=== PATIENT | male | born 1960 | race Caucasian/White ===

== ENCOUNTER 2016-08-24 12:01 | Emergency (ER) | payer BC, OTHER ==
[~2016-08-24] VITALS: Ht 167.6 cm; Wt 57.8 kg
[~2016-08-24 12:01] MED LIST: ASPI-558 PO; FLUT1DIS31 IH; LEVO50TA69 PO
[2016-08-24 12:05] VITALS: Ht 167.6 cm; Wt 57.8 kg
--- OUTSIDE RECORDS SUMMARY | 2016-08-24 12:06 | XMS REPORT | Continuity of Care Document ---
Author Author [facility] Organization [facility] Address Unknown Phone Unavailable Allergies Active Description Code Type Severity Reaction Onset Reported/Identified Relationship to Patient Clinical Status Yes penicillin NKMA N/A N/A 03/29/2014 Medications Problems Date Dx Coded Attending Type Code Diagnosis Diagnosed By 07/06/2015 DONAVON SALINAS, JONI Flynn M70.21 Olecranon bursitis, right elbow 07/06/2015 DONAVON SALINAS, JONI Lopez M79.9 Soft tissue disorder, unspecified Procedures Code [place] [address] EMERGENCY DEPT VISIT JONI RAPHAEL MD 07/06/2015 Results Encounters ACCT No. Visit Date/Time Discharge Status Pt. Type Provider Facility Loc./Unit Complaint [id number] 02/28/2016 13:03:00 2015 23:59:00 DIS Outpatient Juvenal Pierce [facility] FM results after mri [id number] 02/12/2016 14:04:00 2015 23:59:00 DIS Outpatient Juvenal Pierce [facility] FM BACK PAIN, MRI ORDER,ETC [id number] 01/29/2016 10:06:00 2015 23:59:00 DIS Outpatient Juvenal Pierce [facility] FM 1 week follow up on diverticulitis [id number] 01/22/2016 09:38:00 2015 23:59:00 DIS Outpatient Juvenal Pierce [facility] after ct scan [id number] 01/06/2016 11:29:00 2015 23:59:00 DIS Outpatient Rosita Lewis [facility] New IC ABD PAIN [id number] 04/12/2015 15:32:00 2015 23:59:00 DIS Outpatient Juvenal Pierce [facility] FM DOC back pain [id number] 03/29/2014 14:27:00 2013 23:59:00 DIS Outpatient Rene Nieves [facility] FM TOOTH PAIN/RT SIDE
--- OUTSIDE RECORDS SUMMARY | 2016-08-24 12:06 | XMS REPORT | Referral Summary ---
Author Author [facility] Organization [facility] Address Unknown Phone Unavailable Care Team Providers Care Cement Sack Breaker Name Role Phone No PCP, Pt States Primary Care Physician [phone] Encounter VC Date(s): 01/06/16 - 01/06/16 [facility] [address] [place] [address] Discharge Diagnosis: Reducible left inguinal hernia Discharge Diagnosis: muskuloskeletel back pain Discharge Disposition: 01-Home or Self Care Attending Physician: Rosita Lewis APRN Admitting Physician: Rosita Lewis APRN Vital Signs Most recent to 1 oldest [Reference Range]: Temperature Tympanic 36.4 degC [36.6-38.1 degC] *LOW* (01/06/16 11:34 AM) Peripheral Pulse 87 bpm Rate [60-100 bpm] (01/06/16 11:34 AM) Respiratory Rate 18 br/min [14-20 br/min] (01/06/16 11:34 AM) Blood Pressure 122/72 mmHg [90-140/60-90 mmHg] (01/06/16 11:34 AM) SpO2 96 % (01/06/16 11:34 AM) Problem List Condition Effective Dates Status Health Status Informant walter back 02/28/09 Active pain(Confirmed)1 bit by cat, got 2002 Active rabies vaccine(Confirmed)2 Concussion(Confirmed 1979 Active )3 hammertoes rt Active 4th-5th toes(Confirmed)4 Unspecified Active Hypothyroidism(Confi rmed)5 Chicken Active Pox(Confirmed)6 1See Conversion Document. 2See Conversion Document. 3See Conversion Document. 4Dr Gupta See Conversion Document. 5See Conversion Document. 6See Conversion Document. Allergies, Adverse Reactions, Alerts Substance Reaction Severity Status penicillin Active Medications No data available for this section Results No data available for this section Immunizations Vaccine Date Refusal Reason rabies vaccine1 03/31/02 1Result Comment: [10/19/2014] Comments: [place] Procedures Procedure Date Related Diagnosis Body Site Vasectomy1 1992 Fx nose repair2 1975 Open reduction of nasal fracture 1See Conversion Document. 2See Conversion Document. Social History Social History Type Response Smoking Status Current every day smoker; Type: Cigarettes; Tobacco use per day: 1 Pack; Number of years: 30; Total pack years: 30 Assessment and Plan Extracted from: Title: Office Visit Note-inguinal Author: Rosita Lewis EXPEDITER CLERK Date: hernia
--- OUTSIDE RECORDS SUMMARY | 2016-08-24 12:06 | XMS REPORT | Referral Summary ---
Author Author [facility] Organization [facility] Address Unknown Phone Unavailable Care Team Providers Care Senior Fire Protection Engineer Name Role Phone Juvenal Pierce Primary Care Physician [phone] Encounter [facility] [id number] Date(s): 01/22/16 - 01/22/16 [facility] [address] [place] [address] Discharge Diagnosis: Diverticulitis Discharge Diagnosis: Chronic lumbar radiculopathy Discharge Diagnosis: Chronic left hip pain Discharge Disposition: 01-Home or Self Care Attending Physician: Juvenal Pierce DO Admitting Physician: Juvenal Pierce DO Vital Signs Most recent to 1 oldest [Reference Range]: Temperature Tympanic 36.2 degC [36.6-38.1 degC] *LOW* (01/22/16 9:43 AM) Peripheral Pulse 89 bpm Rate [60-100 bpm] (01/22/16 9:43 AM) Respiratory Rate 16 br/min [14-20 br/min] (01/22/16 9:43 AM) Blood Pressure 120/84 mmHg [90-140/60-90 mmHg] (01/22/16 9:43 AM) SpO2 99 % (01/22/16 9:43 AM) Problem List Condition Effective Dates Status [...] Substance Reaction Severity Status penicillin Active Medications [place] 5 mg-325 mg oral tablet 1 tabs, Oral, q6hr, as needed for pain, # 30 tabs, 0 Refill(s) Start Date: 01/22/16 Stop Date: 02/22/16 Status: Ordered Results No data available for this section Immunizations Vaccine Date Refusal Reason rabies vaccine1 03/31/02 1Result Comment: [10/19/2014] Comments: [place] Procedures Procedure Date Related Diagnosis Body Site Vasectomy1 1992 Fx nose repair2 1975 Open reduction of nasal fracture 1See Conversion Document. 2See Conversion Document. Social History Social History Type Response Smoking Status Current every day smoker; Type: Cigarettes; Tobacco use per day: 1 Pack; Number of years: 30; Total pack years: 30 Assessment and Plan Extracted from: Title: Office Visit Note Author: Juvenal Pierce DO Date: 01/22/16 Assessment/Plan Chronic left hip pain 1. Imaging of the left hip ordered, report is pending. 2. If he does have a significant problem then we plan on sending him to be technical services specialist. Ordered: HYDROcodone-acetaminophen, 1 tabs, Oral, q6hr, as needed for pain, # 30 tabs, 0 Refill(s) Office Visit Level 4 Est 36020 XR Hip w Pelvis when perform 2-3 vws LT Chronic lumbar radiculopathy 1. Plain imaging of the lumbar spine ordered to rule out compression vertebral injury. Ordered: HYDROcodone-acetaminophen, 1 tabs, Oral, q6hr, as needed for pain, # 30 tabs, 0 Refill(s) Office Visit Level 4 Est 97605 XR Spine Lumbosacral 2 or [address] of the abdomen discussed in detail with the patient. 2. Continue with Cipro and Flagyl as previous 3. Recommended setting him up for colonoscopy. He would like to hold off on colonoscopy referral. 4. Purling prescribed, one tablet every 6 hours as needed for left lower quadrant pain. 5. If his symptoms worsens with fever, chills, nausea, vomiting, diarrhea and hematochezia then I recommended he goes to the emergency department for evaluation. Patient voiced standing. Ordered: HYDROcodone-acetaminophen, 1 tabs, Oral, q6hr, as needed for pain, # 30 tabs, 0 Refill(s)
--- OUTSIDE RECORDS SUMMARY | 2016-08-24 12:06 | XMS REPORT | Referral Summary ---
Author Author [facility] Organization [facility] Address Unknown Phone Unavailable Care Team Providers Care Powder Worker Name Role Phone Juvenal Pierce Primary Care Physician [phone] Encounter VC Date(s): 02/28/16 - 02/28/16 [facility] [address] [place] [address]- Discharge Diagnosis: Left lumbar radiculopathy Discharge Disposition: 01-Home or Self Care Attending Physician: Juvenal Pierce DO Admitting Physician: Juvenal Pierce DO Vital Signs Most recent to 1 oldest [Reference Range]: Temperature Tympanic 36.5 degC [36.6-38.1 degC] *LOW* (02/28/16 1:11 PM) Peripheral Pulse 82 bpm Rate [60-100 bpm] (02/28/16 1:11 PM) Blood Pressure 107/69 mmHg [90-140/60-90 mmHg] (02/28/16 1:11 PM) Problem List Condition Effective Dates Status Health Status Informant walter back 02/28/09 Active pain(Confirmed)1 bit by cat, got 2002 Active rabies vaccine(Confirmed)2 Concussion(Confirmed 1980 Active )3 hammertoes rt Active 4th-5th toes(Confirmed)4 Unspecified Active Hypothyroidism(Confi rmed)5 Chicken Active Pox(Confirmed)6 1See Conversion Document. 2See Conversion Document. 3See Conversion Document. 4Dr Gupta See Conversion Document. 5See Conversion Document. 6See Conversion Document. Allergies, Adverse Reactions, Alerts Substance Reaction Severity Status penicillin Active Medications gabapentin 600 mg oral tablet 600 mg, Oral, BID, # 60 tabs, 0 Refill(s), Pharmacy: [facility] #[id number], 600 mg Oral BID,x30 days Start Date: 02/12/16 Stop Date: 03/13/16 Status: Ordered Results No data available for this section Immunizations Vaccine Date Refusal Reason rabies vaccine1 03/31/02 1Result Comment: [10/19/2014] Comments: [place] Procedures Procedure Date Related Diagnosis Body [...] Visit Note Author: Juvenal Pierce DO Date: 02/28/16 Assessment/Plan 1.Left lumbar radiculopathy 1. His history, MRI report and previous clinical findings raise concern for left lumbar radiculopathy. 2. I discussed referring him to neurosurgeon for farther evaluation and recommendation but the patient states that he cannot afford that. 3. He requested referral to pain specialist, referral was made. Ordered: Office Visit Level 3 Est 73487
--- OUTSIDE RECORDS SUMMARY | 2016-08-24 12:06 | XMS REPORT ---
Author Author [facility] Organization [facility] Address [address] [place] [address] Phone [phone] Summary purpose CCDA Sent to [facility] Chief Complaint and Reason for Visit No authorized Reason for Visit (Admitting Diagnosis) is available for this visit. Problem list No authorized problems tracked for continuity of care are available for this visit. Encounters No authorized problems tracked for encounter diagnoses are available for this visit. Medications No medications recorded for this patient visit Allergies, adverse reactions, alerts No allergy information is available for this patient. Immunizations No immunizations recorded for this patient visit Relevant diagnostic tests and/or laboratory data No authorized results are available for this patient visit History of procedures No procedures recorded for this patient visit. Functional status Cognitive Status Finding Observation Time Level of Consciousne Alert :20 Oriented to Person Yes [id number]:[address] Yes 60-92-414034:20 Oriented to Time Yes [id number]:20 Vital signs Type Value Date Respirations 76 :07 Pulse 88 :07 O2 Saturation 96% :07 Systolic Blood Press 125mm/HG 66-33-418520:07 Diastolic Blood Pres 79mm/HG 44-23-751719:07 Temperature (Fahr) 98.2Degrees :15 Social history Type Value Smoking Status CURRENT EVERY DAY SMOKER Treatment Plan No treatment plan text is available for this visit. Hospital discharge instructions No discharge instruction text is available for this visit.
--- OUTSIDE RECORDS SUMMARY | 2016-08-24 12:06 | XMS REPORT | Referral Summary ---
Author Author [facility] Organization [facility] Address Unknown Phone Unavailable Care Team Providers Care Molding Machine Operator Helper Name Role Phone Juvenal Pierce Primary Care Physician [phone] Encounter VC Date(s): 01/29/16 - 01/29/16 [facility] [address] [place] [address]- Discharge Diagnosis: Lumbar radiculopathy Discharge Diagnosis: Diverticulitis Discharge Disposition: 01-Home or Self Care Attending Physician: Juvenal Pierce DO Admitting Physician: Juvenal Pierce DO Vital Signs Most recent to 1 oldest [Reference Range]: Temperature Tympanic 35.4 degC [36.6-38.1 degC] *LOW* (01/29/16 10:32 AM) Peripheral Pulse 87 bpm Rate [60-100 bpm] (01/29/16 10:32 AM) Blood Pressure 111/76 mmHg [90-140/60-90 mmHg] (01/29/16 10:32 AM) Problem List Condition Effective Dates Status [...] Substance Reaction Severity Status penicillin Active Medications [place] 5 mg-325 mg oral tablet 1 tabs, Oral, q6hr, as needed for pain, # 30 tabs, 0 Refill(s) Start Date: 01/22/16 Stop Date: 02/22/16 Status: Ordered Results No data available for this section Immunizations Vaccine Date Refusal Reason rabies vaccine1 03/31/02 1Result Comment: [10/19/2014] Comments: [place] Procedures Procedure Date Related Diagnosis Body [...] Visit Note Author: Juvenal Pierce DO Date: 01/29/16 Assessment/Plan 1.Diverticulitis 1. Symptoms of diverticulitis has resolved 2. I recommended colonoscopy but the patient does not have insurance coverage. 3. I recommended he checks into getting his healthcare through [facility] for more affordable cost. Patient voiced understanding. Ordered: Office Visit Level 3 Est 21570 2.Lumbar radiculopathy 1. Imaging of the left hip was negative 2. I suspect he is having lumbar radiculopathy. 3. MRI of the lumbar spine recommended, he will try to get this through [facility]. Patient voiced understanding Ordered: Office Visit Level 3 Est 49901
--- OUTSIDE RECORDS SUMMARY | 2016-08-24 12:06 | XMS REPORT | Referral Summary ---
Author Author [facility] Organization [facility] Address Unknown Phone Unavailable Care Team Providers Care Jewelry Internship Name Role Phone No PCP, States Primary Care Physician [phone] Encounter VC Date(s): 04/12/15 - 04/12/15 [facility] [address] [place] [address] Discharge Diagnosis: Acute pain of left hip Discharge Disposition: 01-Home or Self Care Attending Physician: Juvenal Pierce DO Admitting Physician: Juvenal Pierce DO Vital Signs Most recent to 1 oldest [Reference Range]: Temperature Tympanic 36.1 degC [36.6-38.1 degC] *LOW* (04/12/15 3:37 PM) Peripheral Pulse 68 bpm Rate [60-100 bpm] (04/12/15 3:37 PM) Blood Pressure 115/67 mmHg [90-140/60-90 mmHg] (04/12/15 3:37 PM) Problem List Condition Effective Dates Status [...] Substance Reaction Severity Status penicillin Active Medications meloxicam 15 mg oral tablet 15 mg 1 tabs, Oral, Daily, # 30 tabs, 0 Refill(s), Pharmacy: [facility] # [id number], 1 tabs Oral Daily,x30 days Start Date: 04/12/15 Stop Date: 05/12/15 Status: Ordered Tylenol Extra Strength 1,000 mg, Oral, q6hr, as needed for pain, 0 Refill(s) Start Date: 03/29/14 Status: Ordered Results No data available for this section Immunizations Vaccine Date Refusal Reason rabies vaccine1 03/31/02 1Result Comment: [10/19/2014] Comments: [place] Procedures Procedure Date Related Diagnosis Body [...] Visit Note Author: Juvenal Pierce DO Date: 04/12/15 Assessment/Plan Acute pain of left hip 1. Clinical findings consistent with muscle spasm and strain of the posterior left hip region. 2. Recommended discontinued manipulation therapy with the chiropractor since it's not helping. 3. Meloxicam 15 mg daily for 2-4 weeks. 4. May add Tylenol at thousand milligrams every 8 hours as needed. 5. Warm compression to the involved area 30 minutes at a time, 3-4 times per day. 6. If no improvement in 2 weeks then he's to follow-up with his primary care provider for farther evaluation and management. At this time I do not think we gain any benefit from imaging. Ordered: meloxicam, 15 mg 1 tabs, Oral, Daily, # 30 tabs, 0 Refill(s), Pharmacy: [facility] #[id number], 1 tabs Oral Daily,x30 days Office Visit Level 3 Est 72724
--- OUTSIDE RECORDS SUMMARY | 2016-08-24 12:06 | XMS REPORT | Referral Summary ---
Author Author [facility] Organization [facility] Address Unknown Phone Unavailable Care Team Providers Care Certified Midwife Name Role Phone Juvenal Pierce Primary Care Physician [phone] Encounter VC Date(s): 02/12/16 - 02/12/16 [facility] [address] [place] [address]- Discharge Diagnosis: Left lumbar radiculopathy Discharge Disposition: 01-Home or Self Care Attending Physician: Juvenal Pierce DO Admitting Physician: Juvenal Pierce DO Vital Signs Most recent to 1 oldest [Reference Range]: Temperature Tympanic 36.6 degC [36.6-38.1 degC] (02/12/16 2:07 PM) Peripheral Pulse 97 bpm Rate [60-100 bpm] (02/12/16 2:07 PM) Blood Pressure 108/80 mmHg [90-140/60-90 mmHg] (02/12/16 2:07 PM) SpO2 97 % (02/12/16 2:07 PM) Problem List Condition Effective Dates Status [...] BID, # 60 tabs, 0 Refill(s), Pharmacy: [facility] #[id number], 600 mg Oral BID,x30 days Start Date: 02/12/16 Stop Date: 03/13/16 Status: Ordered [place] 5 mg-325 mg oral tablet 1 tabs, [...] Visit Note Author: Juvenal Pierce DO Date: 02/12/16 Assessment/Plan Left lumbar radiculopathy 1. MRI of the lumbar spine is pending 2. Continue with ibuprofen or Tylenol for discomfort 3. Gabapentin 600 mg twice a day 4. Follow-up after the MRI Ordered: gabapentin, 600 mg, Oral, BID, # 60 tabs, 0 Refill(s), Pharmacy: [facility] #[id number], 600 mg Oral BID,x30 days Office Visit Level 4 Est 86020
[2016-08-24] MEDS ORDERED: ACET-62 PO (12:15)
--- NOTE | 2016-08-24 12:15 | NUR ---
THIRD HAND N. NOLD THIRD HAND AT BEDSIDE.
--- OUTSIDE RECORDS SUMMARY | 2016-08-24 12:16 | XMS REPORT | Continuity of Care Document ---
Author Author [facility] Organization [facility] Address Unknown Phone Unavailable Allergies Active Description Code Type Severity Reaction Onset Reported/Identified Relationship to Patient Clinical Status Yes penicillin NKMA N/A N/A 03/29/2014 Medications Problems Date Dx Coded Attending Type Code Diagnosis Diagnosed By 07/06/2015 DONAVON SALINAS, JONI Flynn M70.21 Olecranon bursitis, right elbow 07/06/2015 DONAVON SALINAS, JONI Lopez M79.9 Soft tissue disorder, unspecified Procedures Code Description [place] [address] EMERGENCY DEPT VISIT JONI RAPHAEL MD 07/06/2015 Results Encounters ACCT No. Visit Date/Time Discharge Status Pt. Type Provider Facility Loc./Unit Complaint [id number] 02/28/2016 13:03:00 2015 23:59:00 DIS Outpatient Juvenal Pierce [facility] New FM results after mri [id number] 02/12/2016 14:04:00 2015 23:59:00 DIS Outpatient Juvenal Pierce [facility] FM BACK PAIN, MRI ORDER,ETC [id number] 01/29/2016 10:06:00 2015 23:59:00 DIS Outpatient Juvenal Pierce [facility] FM 1 week follow up on diverticulitis [id number] 01/22/2016 09:38:00 2015 23:59:00 DIS Outpatient Juvenal Pierce [facility] FM after ct scan [id number] 01/06/2016 11:29:00 2015 23:59:00 DIS Outpatient Rosita Lewis [facility] New IC ABD PAIN [id number] 04/12/2015 15:32:00 2015 23:59:00 DIS Outpatient Juvenal Pierce [facility] New FM DOC back pain [id number] 03/29/2014 14:27:00 2013 23:59:00 DIS Outpatient Rene Nieves [facility] FM TOOTH PAIN/RT SIDE
--- NOTE | 2016-08-24 12:28 | ERPDOC ---
Departure Disposition Decision Date: August 24, 2016 Disposition Decision Time: 13:02 Disposition: 01 DISCHARGED HOME, SELF-CARE Impression Impression Impression: Primary Impression: Sciatica of left side Severity: Moderate Condition: Stable Seen By: Mid-level only Referrals: EMIL PIERCE DO (Family) Patient Instructions: Sciatica (ED) Problems/Meds/Labs Reviewed?: Yes Medications reviewed and manag: Yes Additional Instructions: Take the steroids as prescribed. If you do notice that this helps your pain then I do feel like you will benefit from a steroid injection. Take the [place] as needed for pain. Follow up with Dr Pierce or other primary care provider for reevaluation. Follow up care ordered?: Yes Mental Status: Alert Scripts Hydrocodone/Acetaminophen ([place] 5-325 Tablet) 5-325 Tablet 1 TAB PO Q6H Y for PAIN, #15 TAB 0 Refills Prov: JOE JOHNSTON APRN 08/24/16 Prednisone (Prednisone) 10 Mg Tablet 50 MG PO WB, #25 TAB 0 Refills Take 1 tablet, by mouth, once a day with breakfast. Prov: JOE JOHNSTON APRN 08/24/16 HPI - Lower Extremity General Chief Complaint: Lower Extremity Pain Stated Complaint: LFT HIP PAIN Time Seen by Provider: 12:05 Source: patient Exam Limitations: no limitations HPI - Lower Extremity Initial Comments He has a long history of trouble with pain in his left lower back/hip. He has had an MRI of his lumbar spine in January of [address] of his abdomen. His MRI did show some bulging discs and the Ct of his abdomen did show some inflammed bowel. He did have 6 weeks of PT which did help some but did not totally take the pain away. He has been taking Tylenol for the pain but today it is not really helping at all. The pain is more intense this morning than it has been but is the same pain that he has been having. He denies any fever or chills. Pain is worse with ambulation but he does feel it when he is just walking. Pain comes and goes in intensity. Had taken gabapentin for this in the past but has not taken this for the last year. Occurred At: home Onset/Timing: Gradual Duration: 4-6 hrs Severity: moderate Method of Injury: unknown Quality: cramping, sharpness Allergies: Coded Allergies: Penicillins (Verified Allergy, Unknown, 08/24/16) Past History Past Medical History Metabolic: hypothyroidism GI: GERD Musculoskeletal: back pain Surgical History General: other Reproductive/: other Joint: other Family History Family PMH: FOUND: hypertension Vaccines Hx Influenza Vaccination: No Hx Pneumococcal Vaccination: No Review of Systems Constitutional Constitutional: DENIES: chills, dizziness, fatigue, fever, weakness Cardiovascular Cardiac: DENIES: chest pain, orthopnea Rhythm/Rate: DENIES: irregular beat, palpitations Pulmonary Respiratory: DENIES: cough, dyspnea, sputum, tachypnea GI Upper Abdomen: DENIES: nausea, pain, vomiting Lower Abdomen: DENIES: constipation, diarrhea, pain Musculoskeletal General: pain (left lower back over the SI joint and the left buttock) Integumentary Skin: DENIES: rash Neurological General: DENIES: headache, numbness, tingling, weakness Physical Exam General General Nourishment: well nourished, well developed, appears stated age, no acute distress, adult General Body Habitus: well groomed Vitals and Pain First Documented Vital Signs Date Time Temp Pulse Resp B/P Pulse Ox O2 Delivery O2 Flow Rate FiO2 08/24/16 12:05 97.7 84 20 139/82 97 Room Air Weight: Kilograms: Height (feet): Height (inches): Triage Pain Scale: RN VS reviewed by Provider: Yes Normal Exams: Neck: Full range of motion, without adenopathy, JVD, bruits or thyromegaly Chest/Resp: Clear all [place], with good airflow, and symmetry bilaterally CV: Regular rate and rhythm, without murmur or gallop, Pulses 2+ all extremities, capillary refill, <2 seconds all ext., no pedal edema noted Abdomen: Bowel sounds positive, soft, non-tender, non-distended, no hepatosplenomegaly, masses or bruits noted Integumentary: No rashes, hives, or bruising noted Neurologic: Patient is alert, and oriented Psychiatric: Patient exhibits, appropriate attention, emotion and affect Musculoskeletal (brief) Musculoskeletal Brief: FOUND: tenderness (TTP over the left SI joint and down onto the left buttock. He does have full ROM of the left leg at the hip, when I flex the hip and internally rotate and externally rotate the leg he does report that this alleviates the pain. ) Differential Diagnoses Considering: Contusion, Dislocation, Fracture, Sprain, Strain Progress Results/Orders Orders Procedure Category Date Status Time Ketorolac (Toradol) PHA 08/24/16 Complete 12:30 Orphenadrine (Norflex) PHA 08/24/16 Complete 12:30 Medications Current ED Medications Ketorolac Tromethamine (Toradol) 60 mg O ONCE IM Last administered on t 12:32; Start 08/24/16 at 12:30; Stop 08/24/16 at 12:31; Status DC Orphenadrine Citrate (Norflex) 60 mg O ONCE IM ; Start 08/24/16 at 12:30; Stop 08/24/16 at 12:31; Status DC Progress Progress He did decline the Norflex as muscle relaxers in the past have given him chest pain. He does report improvement of his pain after the Toradol alone however. I did talk with him that he should follow up with Dr Pierce to discuss further options such as steroid injections to see if this will help his pain. Will go ahead and give him Rx for Prednisone and [place]. JOE JOHNSTON APRN August 24, 2016 12:28
--- NOTE | 2016-08-24 12:30 | NUR ---
MEDS/INFORMATION INSTRUCTED PT REGARDING TORDOL AND NORFLEX ORDERED. PT STATES THAT "MY CHEST HURTS, I FEEL A TIGHTNESS" WHEN HE TAKES MUSCLE RELAXERS. PT REPORTS THAT IT HAS HAPPENED WITH 2 MUSCLE RELAXERS THAT HE IS UNABLE TO RECALL AT THIS TIME. PREVIOUS MED REACTION REPORTED TO Feliciano JOHNSTON APRN AT THIS TIME. NORFLEX NON-ADMINISTERED DUE TO PREVIOUS REACTION. VERBAL EDUCATION PROVIDED TO PT.
[2016-08-24] MEDS: ORPHENADRINE 60mg/2ml INJECTION IM ONE (12:32)
[2016-08-24] MEDS: KETOROLAC 60mg/2ml INJECTION IM ONE (12:32)
--- NOTE | 2016-08-24 13:00 | NUR ---
RN INTERNSHIP N. NOLD RN INTERNSHIP AT BEDSIDE.
[2016-08-24] MEDS ORDERED: PRED10TA PO (13:04)
[2016-08-24] MEDS ORDERED: HYDR-4246 PO (13:06)
[2016-08-24 13:13] VITALS: BP 124/83; PULSE 70; RESP 14; TEMP 97.9; O2SAT 97
--- NOTE | 2016-08-24 13:13 | NUR ---
DEPART PT AMBULATORY TO LOBBY WITHOUT GAIT DISTURBANCE.
== END 2016-08-24 13:13 | disposition home or self-care (01) ==
LOC: ED 12:01
DX: M54.42 Lumbago with sciatica, left side (principal)
CPT/HCPCS: 96372; 99283; J1885